=== PATIENT | male | born 1950 | race Asian ===

== ENCOUNTER 2024-02-09 18:43 | Observation (INO) ==
--- NOTE | 2024-02-09 19:18 | Emergency Department Note ---
Impression & Plan Chest pain ED Provider Note Provider: Anders Harris MD DATE OF SERVICE: 02/09/2024 CHIEF COMPLAINT: Chest pain, EKG changes HISTORY OF PRESENT ILLNESS: Patient is a 73-year-old gentleman reporting with family reports of some chest discomfort this morning. 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 Family states he had some chest discomfort over the last several years. Has worsened the last week or 2 and was seen in [facility]. Referral to cardiology placed. No shortness of breath reported but has had some dizziness. No trauma syncope or falls reported. Pain this morning while walking last about 40 minutes central chest (9 AM or so). Denies radiation elsewhere abdominal pain or nausea. Denies syncope. Denies difficulty breathing. Family and patient reports in the last year or 2 has had some brief episodes of dizziness with warmth and chest tightness that sometimes last 30 to 40 minutes some component of change when he has lied down in the past. This has not happened in several months according to daughter. EKG at doctor's office today was concerning for some T wave changes anteriorly and was sent here for further evaluation. Denies any pain currently. No heart history or history of stress test. Does not take aspirin but did a Sierra Leonean heart medicine he supposed to take if he feels like he is having a heart attack. PAST MEDICAL HISTORY: As noted above MEDICATIONS: Reviewed home medications includes amlodipine, atorvastatin, and losartan SOCIAL HISTORY: Non-smoker PHYSICAL EXAM: GENERAL: alert and oriented in no acute distress on stretcher, family at bedside Head: normocephalic and atraumatic EYES: No injection, discharge or icterus. EOMI. NECK: Trachea midline. ENT: Mucous membranes pink and moist. LUNGS: Airway patent. No retractions. Breath sounds clear with good air entry bilaterally. HEART: Regular rate and rhythm. No chest wall tenderness ABDOMEN: Soft and non-tender, without guarding or rebound. SKIN: Acyanotic, warm, dry, without rashes EXTREMITIES: Without swelling, tenderness or deformity NEUROLOGICAL: No focal deficits moving all extremities. No facial droop. Ambulatory. EK bpm normal sinus rhythm right bundle branch block. Some prominent T waves V4 V5 today without acute ST segment elevation or depression and QTc of 424. CONTINUOUS CARDIAC MONITORING: was ordered and showed a heart rate of 60s to 70s bpm in normal sinus rhythm 1 view chest x-ray per my interpretation: No pneumonia, pneumothorax, free air, or cardiomegaly appreciable. Patient's laboratory studies and imaging reviewed. Differential includes Cardiac ischemia, aortic dissection, pulmonary embolism, pneumothorax, pneumonia, pericarditis, myocarditis, esophageal rupture, GERD, cholecystitis, pancreatitis, musculoskeletal, as well as other pathologies. IMPRESSION/MEDICAL DECISION MAKING: Evidently some exertional chest discomfort this morning that has resolved. EKG from earlier this afternoon around 3:22 PM does show very prominent T wave changes and peaked T waves V2 through V6 without ST segment depression. EKG here this evening without these and patient pain-free. Question exertional component to his chest discomfort causing this change. Troponin sent. Not significant tachycardic or hypoxic and denies shortness of breath and lower suspicion for PE. Evidently did have some outpatient blood work recently but cannot see this in our system at this time. Blood was sent tonight to exclude any electrolyte abnormality or signs of acute renal dysfunction which is not noted. Blood counts were sent as well to exclude anemia. No significant anemia is noted. Not have any severe tearing pain or severe hypertension and doubt dissection. Chest x-ray obtained without findings of pneumonia or pneumothorax. While no active chest pain given a dose of aspirin given the history that is concerning. Troponin most importantly was sent to look for any ischemic findings. Troponin here returns at 5.3. Discussed with family and patient findings. Concern given exertional component of his discomfort as well as the EKG changes that have been occurring. Given this his age and risk factors discussed today for further cardiac evaluation possible need for stress test versus outpatient follow-up in several weeks (likely timeframe). Shared decision making agreeable for observation and cardiac evaluation into tomorrow. Hospitalist was contacted. DIAGNOSIS: Chest pain DISPOSITION: Hospitalist will evaluate Patient was agreeable with this plan. Past Med/Surg History Problem List (Updated 02/09/24 @ 21:07 by Anders Harris M.D.) Chest pain (Acute) Social History Smoking Status: Unknown if ever smoked Feels Safe at Home: Yes Allergies Allergies Allergy/AdvReac Type Severity Reaction Status Date / Time No Known Allergies Allergy Unverified 02/09/24 19:31 Home Meds Home Medications Medication Instructions Recorded Confirmed amlodipine 5 mg tablet 5 mg PO QAM 02/09/24 02/09/24 atorvastatin 10 mg tablet 10 mg PO QAM 02/09/24 02/09/24 losartan 50 mg tablet 50 mg PO QAM 02/09/24 02/09/24 Results & Data (ED) Vital Signs Vital Signs - 24 hr 02/09/24 18:46 02/09/24 18:59 02/09/24 19:03 Temperature 36.9 C Temperature Source Temporal Artery Scan Pulse Rate 70 68 Pulse Rate [Apical] Pulse Rhythm Regular Pulse Rhythm [Apical] Pulse Strength [Apical] Respiratory Rate 20 Respiratory Effort / Characteristics Non-Labored Spontaneous Respiratory Depth Normal Respiratory Pattern Blood Pressure 119/72 Blood Pressure [Left Arm] Blood Pressure Mean 87 Blood Pressure Mean [Left Arm] Blood Pressure Position [Left Arm] Pulse Oximetry 97 95 Oxygen Delivery Method Room Air Room Air Sepsis Recent Fever Within 48 Hours No Sepsis New/Unexplained Change in Mental Status No Sepsis Action Taken by Nursing No Action Required 02/09/24 19:03 02/09/24 19:06 02/09/24 21:00 Temperature Temperature Source Pulse Rate 97 H Pulse Rate [Apical] 74 65 Pulse Rhythm Regular Pulse Rhythm [Apical] Regular Regular Pulse Strength [Apical] Normal Normal Respiratory Rate 16 16 16 Respiratory Effort / Characteristics Non-Labored Spontaneous Non-Labored Spontaneous Respiratory Depth Normal Normal Respiratory Pattern Regular Regular Blood Pressure Blood Pressure [Left Arm] 110/56 L 128/72 Blood Pressure Mean Blood Pressure Mean [Left Arm] 74 90 Blood Pressure Position [Left Arm] Sitting Sitting Pulse Oximetry 95 95 95 Oxygen Delivery Method Room Air Room Air Room Air Sepsis Recent Fever Within 48 Hours Sepsis New/Unexplained Change in Mental Status Sepsis Action Taken by Nursing Laboratory Data 02/09/24 18:20 02/09/24 18:20 Lab Results 02/09/24 02/09/24 Range/Units 18:20 19:12 WBC 4.69 L (4.8-10.8) K/ul RBC 4.03 L (4.70-6.10) M/uL Hgb 13.8 L (14.0-18.0) g/dl POC Hgb 13.9 L (14.0-18.0) g/dl Hct 39.0 L (42.0-52.0) % POC Hct 41 L (42-52) % MCV 96.8 (80.0-100.0) fL MCH 34.2 H (25.0-34.0) pg MCHC 35.4 (32.0-36.0) g/dL RDW Std Deviation 44.7 (36.4-46.3) fL RDW Coeff of Jose 12.5 (11.5-14.5) % Plt Count 191 (130-400) K/uL MPV 9.9 (9.4-12.4) fL Immature Gran % (Auto) 0.4 % Neut % (Auto) 46.7 % Lymph % (Auto) 39.2 % [place] % (Auto) 9.4 % Eos % (Auto) 3.0 % Baso % (Auto) 1.3 % Neut # (Auto) 2.19 (1.40-6.50) K/uL Lymph # (Auto) 1.84 (1.20-3.40) K/uL [place] # (Auto) 0.44 (0.11-0.59) K/uL Eos # (Auto) 0.14 (0.00-0.50) K/uL Baso # (Auto) 0.06 (0.00-0.20) K/uL Immature Gran # (Auto) 0.02 (0.01-0.20) K/uL PT 10.6 (9.0-12.0) Seconds INR 1.0 (0.9-1.1) POC Sodium 135 (135-144) mmol/L Sodium 133 L (136-145) mmol/L POC Potassium 4.1 (3.3-5.0) mmol/L Potassium 4.1 (3.5-5.1) mmol/L POC Chloride 101 (101-112) mmol/L Chloride 103 (98-107) mmol/L Carbon Dioxide 24 (21-32) mmol/L POC Total CO2 21 L (24-31) mmol/L Anion Gap 6 (3-11) POC Anion Gap 18.0 (16-25) mmol/L POC BUN 14 (7-18) mg/dl BUN 15 (6-23) mg/dl Creatinine 1.06 (0.6-1.4) mg/dl POC Creatinine 1.1 (0.6-1.3) mg/dl Est Cr Clr Drug Dosing 52.8 ml/min eGFR 74.10 BUN/Creatinine Ratio 14.2 (10-20) Glucose 124 H (70-99(Fasting)) mg/dl POC Glucose (other) 120 H (70-99) mg/dl Calcium 9.0 (8.6-10.3) mg/dl POC Ioniz Calcium Dong 1.17 (1.12-1.32) mmol/l Magnesium 2.1 (1.7-2.4) mg/dl Total Bilirubin 0.5 (0.2-1.0) mg/dl AST 21 (13-39) U/L ALT 19 (7-52) U/L Alkaline Phosphatase 50 (34-104) U/L Troponin I High Sens 5.3 (0-20) pg/ml Total Protein 7.0 (6.0-8.3) gm/dl Albumin 4.3 (3.4-5.0) gm/dl Globulin 2.7 (2.5-4.0) gm/dl Albumin/Globulin Ratio 1.6 (0.9-2) Lipase 31 (11-82) U/L Administered Medications Discontinued Medications Aspirin (Aspirin 81 Mg Chew) 324 mg PO NOW STA Stop: 02/09/24 19:25 Last Admin: 02/09/24 19:29 Dose: 324 mg Documented By: SNS Imaging Data Radiologist's Impression: Chest X-Ray 02/09/24 18:58 SINGLE VIEW CHEST CLINICAL HISTORY: Atypical chest pain. FINDINGS: An AP, portable, upright chest radiograph is obtained. No prior studies are available for comparison at the time of dictation. The heart is mildly enlarged. The pulmonary vasculature is noncongested. Nonspecific interstitial thickening is likely chronic. The lungs and pleural spaces are clear. No pneumothorax is seen. The skeletal structures are osteopenic. The bony thorax is grossly intact. IMPRESSION: No acute cardiopulmonary abnormality is identified. ACT 112: Negative or not required by law. Electronically signed by: Kofi Soto M.D. 02/09/2024 10:04 PM Discharge Plan Visit Data Chief Complaint: Cardiac Assessment Stated Complaint: HEART PROBLEMS, HIGHER T WAVES THAN NORMAL ED Provider: Anders Harris Discharge Problem: Chest pain Patient Disposition: Being Evaluated by Hospitalist Forms Stand Alone Forms: My [facility] Prescriptions Prescriptions: No Action losartan 50 mg Tablet 50 mg PO QAM amlodipine 5 mg Tablet 5 mg PO QAM atorvastatin 10 mg Tablet 10 mg PO QAM Referrals Referrals: PCP,NO [Physician] -
[2024-02-09 19:24] LABS: iSTAT Creatinine 1.1 mg/dl (0.6-1.3); iSTAT Hemoglobin 13.9 g/dl (14.0-18.0); iSTAT Ionized Calcium 1.17 mmol/l (1.12-1.32); iSTAT Potassium 4.1 mmol/L (3.3-5.0)
[2024-02-09 19:29] LABS: Basophils # (auto) 0.06 K/uL (0.00-0.20); Basophils % (auto) 1.3 %; Eosinophils # (auto) 0.14 K/uL (0.00-0.50); Hemoglobin 13.8 g/dl (14.0-18.0); Immature Granulocytes # (auto) 0.02 K/uL (0.01-0.20); Immature Granulocytes % (auto) 0.4 %; Lymphocytes # (auto) 1.84 K/uL (1.20-3.40); Lymphocytes % (auto) 39.2 %; Mean Corpuscular Hemoglobin 34.2 pg (25.0-34.0); Mean Corpuscular Hgb Conc 35.4 g/dL (32.0-36.0); Mean Corpuscular Volume 96.8 fL (80.0-100.0); Mean Platelet Volume 9.9 fL (9.4-12.4); Monocytes # (auto) 0.44 K/uL (0.11-0.59); Monocytes % (auto) 9.4 %; Neutrophils # (auto) 2.19 K/uL (1.40-6.50); Neutrophils % (auto) 46.7 %; Platelet Count 191 K/uL (130-400); RDW Coefficient of Variation 12.5 % (11.5-14.5); RDW Standard Deviation 44.7 fL (36.4-46.3); Red Blood Count 4.03 M/uL (4.70-6.10); White Blood Count 4.69 K/ul (4.8-10.8)
[2024-02-09] MEDS: ASPIRIN 81 MG CHEW PO STA (19:29)
[2024-02-09 19:38] LABS: Albumin Globulin Ratio 1.6 (0.9-2); Albumin Level 4.3 gm/dl (3.4-5.0); BUN Creatinine Ratio 14.2 (10-20); Bilirubin,Total 0.5 mg/dl (0.2-1.0); Creatinine Clr Calc Pharmacy 52.8 ml/min; Globulin 2.7 gm/dl (2.5-4.0); Magnesium 2.1 mg/dl (1.7-2.4); Potassium 4.1 mmol/L (3.5-5.1)
[2024-02-09 19:45] LABS: Troponin I High Sensitivity 5.3 pg/ml (0-20)
[2024-02-09 19:50] LABS: Prothrombin Time 10.6 Seconds (9.0-12.0)
--- NOTE | 2024-02-09 22:05 | XRay Report ---
SINGLE VIEW CHEST CLINICAL HISTORY: Atypical chest pain. FINDINGS: An AP, portable, upright chest radiograph is obtained. No prior studies are available for c omparison at the time of dictation. The heart is mildly enlarged. The pulmonary vasculature is noncon gested. Nonspecific interstitial thickening is likely chronic. The lungs and pleural spaces are clear . No pneumothorax is seen. The skeletal structures are osteopenic. The bony thorax is grossly intact. IMPRESSION: No acute cardiopulmonary abnormality is identified. ACT 112: Negative or not required by law. Electronically signed by: Kofi Soto M.D. 02/09/2024 10:04 PM
--- NOTE | 2024-02-09 22:27 | History & Physical Report ---
Date of Service February 09, 2024 Assessment & Plan (1) Chest pain: (2) HTN (hypertension): (3) HLD (hyperlipidemia): Plan 73 year old male with h/o HTN, HLD presenting at recommendation of PCP d/t concern for T wave changes on outpatient EKG, also with intermittent exertional chest tightness: Patient to be admitted for observation and cardiology evaluation. #Chest pain/tightness: EKG on admission without ischemic changes Negative troponin Patient hemodynamically stable, currently without chest pain Cardiology consulted, appreciate recs TTE ordered, pending AM labs: BMP, fasting lipid panel #HTN: Continue home amlodipine and Losartan #HLD: Continue home Atorvastatin Dispo: Admit as [id number] FEN/GI: HH VTE ppx: Heparin Full Code History of Present Illness Primary Care Provider: María Montalvo, 73 year old male with h/o HTN, HLD presenting at recommendation of PCP d/t concern for T wave changes on outpatient EKG. 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 Patient also had a 40 minute episode of chest tightness while walking this morning - this intermittent chest tightness has been a chronic issue for multiple years, usually associated with exertion but sometimes occurs even at rest. Denies personal h/o RI, unsure about family cardiac history. Patient does, however, take a [place] Islander medication, Suxiao Jiuxin, as needed when he experiences this chest tightness - it is supposed to help relieve angina. Patient denies chest pain/tightness at present, denies shortness of breath, palpitations. Outpatient EKG with RBBB, T-wave changes in anterior leads but no overt ischemic changes. ED Course: EKG NSR rate [address] but without ST segment elevation or depression. Negative Troponin. Negative CXR. Allergies Allergy/AdvReac Type Severity Reaction Status Date / Time No Known Allergies Allergy Unverified 02/09/24 19:31 Home Medications Medication Instructions Recorded Confirmed Type amlodipine 5 mg tablet 5 mg PO QAM 02/09/24 02/09/24 History atorvastatin 10 mg tablet 10 mg PO QAM 02/09/24 02/09/24 History losartan 50 mg tablet 50 mg PO QAM 02/09/24 02/09/24 History Past Med/Surg History Problem List (Updated 02/09/24 @ 23:13 by Chris Villatoro DO) HLD (hyperlipidemia) HTN (hypertension) Chest pain (Acute) Social History Smoking Status: Never smoker Second Hand Exposure: No; Do You Dip or Chew Tobacco: No; Tobacco Cessation Education Requested by Patient: No Hx Alcohol Use: No Hx Substance Use: No Preferred Language: Mandarin [place]er Communication Ability: Effective Mixer Helper Required: Yes Beliefs That Will Affect Care: None Current Living Situation: Family Other Information That Helps Us Care for You: No Feels Safe at Home: Yes Safety Concerns: Feels Safe At This Time Assistive Devices: None Review of Systems Review of Systems: as per HPI Physical Exam Physical Exam: General: Alert and oriented. No acute distress Cardiac: Regular rate and rhythm, no murmurs appreciated Respiratory: Lungs clear to auscultation bilaterally, No increased work of breathing Extremities: No lower extremity edema, calves non-tender bilaterally Results & Data Results & Data Vital Signs (Past 12 Hours) Vital Signs Temp Pulse Pulse Resp BP BP Pulse Ox 02/09/24 21:00 65 16 128/72 95 02/09/24 19:06 74 16 110/56 L 95 02/09/24 19:03 97 H 16 95 02/09/24 19:03 95 02/09/24 18:59 68 02/09/24 18:46 36.9 C 70 20 119/72 97 O2 Del Method 02/09/24 21:00 Room Air 02/09/24 19:06 Room Air 02/09/24 19:03 Room Air 02/09/24 19:03 Room Air 02/09/24 18:59 02/09/24 18:46 Room Air Supervising Physician Co-Signing Physician Notes Attending addendum: I have supervised the medical residents activities, and agree with the H&P unless as otherwise noted. Assessment and Plan: Chest pain/hypertension- The patient will be admitted to telemetry for serial cardiac enzymes, serial EKG's, cardiac rhythm monitoring and a 2-D echocardiogram with Dopplers. Patient speaks primarily [place] Islander, but refused an official finish mill operator, in lieu of family member who is in the room Patient had been having worsening chest discomfort over the past week or so, and was seen at [facility] this morning, had an EKG which they were concerned about possible peaked T waves, and patient was advised to come to the ED for assessment. EKG in the ED shows normal sinus rhythm at 69, right bundle branch block, no acute ST-T changes Patient does take an medication, whose mode of action can not be determined at this time Troponin in the ED is 5.3, with follow-up pending Continue amlodipine and losartan Patient reportedly received aspirin already Consult cardiology Hyperlipidemia- Continue atorvastatin Hyperglycemia- Glucose 124 on admission No history of diabetes Resident Activity Tracking Resident Involvement: Resident Care Provided Care Provided: Adult Hospital Medicine
[2024-02-09] MEDS ORDERED: POLYETHYLENE (MIRALAX) 17 GM PACK PO PRN (23:29)
[2024-02-09] MEDS ORDERED: ALUMINUM/MAGNESIUM SUSP 30 ML UDC PO PRN (23:29)
[2024-02-09] MEDS ORDERED: ACETAMINOPHEN 325 MG TAB PO PRN (23:29)
[2024-02-10 03:16] VITALS: TEMP 98.2
[2024-02-10 05:30] LABS: Chol HDL Ratio 2.6 (0-5); Creatinine Clr Calc Pharmacy 54.1 ml/min
--- NOTE | 2024-02-10 06:11 | Billing Data ---
Date of Service February 10, 2024 Coding Level of Care Code 15146 INT INP/OBS CARE
[2024-02-10 07:30] VITALS: BP 113/56; PULSE 54; RESP 16; O2SAT 96
--- NOTE | 2024-02-10 08:26 | XCELERA ---
[id number]
--- NOTE | 2024-02-10 08:29 | Electrocardiogram Report ---
Test Reason : Blood Pressure : */* mmHG Vent. Rate : 54 BPM Atrial Rate : 54 BPM P-R Int : 180 ms QRS Dur : 128 ms QT Int : 432 ms P-R-T Axes : 44 33 24 degrees QTcB Int : 409 ms Sinus bradycardia Right bundle branch block Abnormal ECG When compared with ECG of 09-Feb-2024 18:54, (unconfirmed) No significant change was found Confirmed by Wild Jiménez ([id number]) on 02/10/2024 8:29:14 AM Referred By: REFERRED SELF Confirmed By: Wild Jiménez
--- NOTE | 2024-02-10 08:31 | Electrocardiogram Report ---
Test Reason : Blood Pressure : */* mmHG Vent. Rate : 69 BPM Atrial Rate : 69 BPM P-R Int : 180 ms QRS Dur : 128 ms QT Int : 396 ms P-R-T Axes : 64 43 26 degrees QTcB Int : 424 ms Normal sinus rhythm Right bundle branch block Abnormal ECG No previous ECGs available Confirmed by Wild Jiménez ([id number]) on 02/10/2024 8:30:33 AM Referred By: REFERRED SELF Confirmed By: Wild Jiménez
[2024-02-10] MEDS: HEPARIN SOD 5,000 UNIT/0.5 ML VIAL SQ SCH (08:34)
[2024-02-10] MEDS: ATORVASTATIN 10 MG TAB PO SCH (08:34)
[2024-02-10 09:00] LABS: Troponin I High Sensitivity 3.3 pg/ml (0-20)
[2024-02-10] MEDS: LOSARTAN POTASSIUM 50 MG TAB PO SCH (09:19)
[2024-02-10] MEDS: amLODIPine BESYLATE 5 MG TAB PO SCH (09:19)
--- NOTE | 2024-02-10 09:59 | Cardiology Consultation ---
Date of Consultation February 10, 2024 Assessment & Plan (1) Chest pain: (2) Right bundle branch block: Plan 1. Chest pain: Not related to cardiac ischemia. The patient related to an extended episode of symptoms without any elevation in cardiac biomarkers. I do not think the EKG obtained yesterday is indicative of an ACS. The patient was not having symptoms at that time. His symptoms are not exclusively exertional. In fact, it sounds as if the episodes are relatively infrequent and brief. Oftentimes his symptoms seem to be relieved with holding his breath. This would be more indicative of a reentrant SVT perhaps causing symptoms. Echocardiogram is normal. He does have an element of resting bradycardia and I think would be reasonable to perform exercise testing to monitor heart rate response. I discussed obtaining an outpatient monitor or perhaps more appropriate would be simply obtaining a pulse oximeter for as needed use as his episodes of chest pain or relatively infrequent. This would at least give us an idea of whether his symptoms are associated with a high heart rate and/or SVT. 2. Right bundle branch block: Unclear duration No other significant conduction disease. Not indicative of coronary artery disease. 3. Lipid profile appears quite favorable on low-dose atorvastatin. History of Present Illness Reason for Consultation: Chest pain Attending Physician: Miko Chowdary MD, PhD History of Present Illness The patient is a 73-year-old gentleman without a known history of coronary disease who was referred to the hospital by his primary care physician for symptoms of chest pain and an abnormal EKG. The patient does not speak Yoruba well. He was offered the use of a proprietary technical asst, but preferred to have his daughter do the translation. It seems that yesterday morning while he was on his usual walk he began to have symptoms of chest discomfort. This is described as precordial in nature without radiation. The patient has had similar symptoms in the past that were very mild and relatively short in duration. This particular episode seem to be more intense and lasted 40 minutes by report. The patient came home and contacted his primary care physician. He was seen in the outpatient setting and an EKG was obtained. The patient was advised to go to the emergency room for an evaluation but at that time refused. He was contacted later in the day and again advised to go to the emergency room and he complied. By time he reached the hospital his symptoms had resolved. According to the patient he has not had symptoms since yesterday morning. Apparently he has similar symptoms on occasion. These episodes are fairly random in nature and generally not associated with exertion. Usually last a few minutes and can be improved with holding his breath. The episodes happen rarely perhaps every couple of months. He believes they have been occurring for several years. He is not aware of palpitations during these episodes he did not endorse symptoms of dyspnea associated with activity or during these episodes. Occasionally he will have a sense of dizziness and lightheadedness that appears to be more related to vertigo and is positional. He lives in an assisted living community. On days where he is not able to perform his usual walk he will use some exercise equipment at the facility. Allergies Allergy/AdvReac Type Severity Reaction Status Date / Time No Known Allergies Allergy Unverified 02/09/24 19:31 Home Medications Medication Instructions Recorded Confirmed Type amlodipine 5 mg tablet 5 mg PO QAM 02/09/24 02/09/24 History atorvastatin 10 mg tablet 10 mg PO QAM 02/09/24 02/09/24 History losartan 50 mg tablet 50 mg PO QAM 02/09/24 02/09/24 History Patient History Social History Smoking Status: Never smoker Second Hand Exposure: No; Do You Dip or Chew Tobacco: No; Hx Alcohol Use: No Hx Substance Use: No Preferred Language: [employer] Khmer Communication Ability: Effective [employer] Required: Yes Beliefs That Will Affect Care: None Current Living Situation: Family Feels Safe at Home: Yes Assistive Devices: None Review of Systems Review of Systems: Per HPI eating well. No gastrointestinal symptoms recently. Physical Exam Physical Exam: The patient is alert and oriented. Mood and affect appeared normal. He answered all questions appropriately. HEENT: Pupils are equal and reactive to light and accommodation. Extraocular movements are intact. The sclerae are anicteric. Neuro: Cranial nerves intact Lungs: Clear to auscultation bilaterally. He has good air movement without use of accessory muscles. No rales wheezes or rhonchi. Cardiac: Heart demonstrates a regular rate and rhythm. Normal S1 and S2. No murmurs on examination. Pulses: The patient has palpable radial pulses bilaterally that are equal in intensity Extremities: There was no evidence of hypoperfusion. There is no cyanosis or clubbing. There is no edema. Skin: I did not appreciate any rashes on examination today. Results & Data Vital Signs (Past 12 Hours) Vital Signs Temp Pulse Pulse Resp BP BP Pulse Ox 02/10/24 07:29 36.8 C 54 L 16 113/56 L 96 02/10/24 07:23 52 L 02/10/24 03:14 36.8 C 55 L 20 106/62 96 02/09/24 23:58 36.9 C 53 L 18 95 02/09/24 23:57 36.8 C 52 L 19 118/74 95 02/09/24 23:29 02/09/24 23:29 60 20 121/71 96 02/09/24 23:16 57 L 02/09/24 22:30 95 H 19 129/72 97 02/09/24 22:00 60 16 114/71 96 Pulse Ox O2 Del Method O2 Del Method 02/10/24 07:29 Room Air 02/10/24 07:23 02/10/24 03:14 Room Air 02/09/24 23:58 Room Air 02/09/24 23:57 Room Air 02/09/24 23:29 99 Room Air 02/09/24 23:29 Room Air 02/09/24 23:16 02/09/24 22:30 02/09/24 22:00 Laboratory Results Abnormal Lab Results 02/09/24 02/09/24 02/10/24 18:20 19:12 05:02 WBC 4.69 L RBC 4.03 L Hgb 13.8 L POC Hgb 13.9 L Hct 39.0 L POC Hct 41 L MCV 96.8 MCH 34.2 H MCHC 35.4 RDW Std Deviation 44.7 RDW Coeff of Jose 12.5 Plt Count 191 MPV 9.9 Immature Gran % (Auto) 0.4 Neut % (Auto) 46.7 Lymph % (Auto) 39.2 Wallace % (Auto) 9.4 Eos % (Auto) 3.0 Baso % (Auto) 1.3 Neut # (Auto) 2.19 Lymph # (Auto) 1.84 Wallace # (Auto) 0.44 Eos # (Auto) 0.14 Baso # (Auto) 0.06 Immature Gran # (Auto) 0.02 PT 10.6 INR 1.0 POC Sodium 135 Sodium 133 L 136 POC Potassium 4.1 Potassium 4.1 4.0 POC Chloride 101 Chloride 103 106 Carbon Dioxide 24 25 POC Total CO2 21 L Anion Gap 6 5 POC Anion Gap 18.0 POC BUN 14 BUN 15 13 Creatinine 1.06 1.03 POC Creatinine 1.1 Est Cr Clr Drug Dosing 52.8 54.1 eGFR 74.10 76.70 BUN/Creatinine Ratio 14.2 Glucose 124 H POC Glucose (other) 120 H Fasting Glucose 85 Calcium 9.0 9.0 POC Ioniz Calcium Dong 1.17 Magnesium 2.1 Total Bilirubin 0.5 AST 21 ALT 19 Alkaline Phosphatase 50 Troponin I High Sens 5.3 3.3 Total Protein 7.0 Albumin 4.3 Globulin 2.7 Albumin/Globulin Ratio 1.6 Triglycerides 54 Cholesterol 141 LDL Cholesterol, Calc 76 VLDL Cholesterol, Calc 11 HDL Cholesterol 54 Cholesterol/HDL Ratio 2.6 Lipase 31 Diagnostic Findings Echocardiogram 02/10/2024: Normal LV systolic function. No significant valvular heart disease. Essentially normal study. PG Care Time/CCT Total # of Minutes Spent Total Time Spent with Patient: Total time spent is greater than 50% in coordination of care (as documented) at patient's floor/unit and/or counseling patient: Coding Level of Care Code 60757 INT INP/OBS CARE 375MIN Diagnoses Chest pain R07.9 Right bundle branch block I45.10
--- NOTE | 2024-02-10 13:10 | XCELERA ---
[id number]
--- NOTE | 2024-02-10 13:39 | Discharge Summary ---
Discharge Summary Date of Service February 10, 2024 Principal Dx & Hospital Course #1 = Principal Diagnosis (1) Chest pain: Etiology of chest pain remains unclear in this patient with a past medical history of intermittent bouts of exertional chest tightness despite taking a [place]ian herbal medicine called suxiao jiuxin wan at his home to mitigate his intermittent bouts of exertional chest tightness. In my brief review of the literature, I note that the composition of suxiao jiuxin wan includes Ligusticum chuanxiong and Borneolum syntheticum. The mechanism of action for Ligusticum chuanxiong is to dilate coronary arteries, thereby lowering blood pressure. Its alkaloid derivatives function as anti- spasmodics. The mechanism of action of Borneolum syntheticum remains less clear, but is known to enhance/increase the activity of Ligusticum chuanxiong; on the other hand, adverse effects of Borneolum syntheticum include irritation of the eyes, skin, and respiratory tract. cf., Derrick Colón. "Observation of therapeutic effects of Suxiao Jiuxin Wan for CHD." The Practical Journal of Intergrating [place]ian with Modern Medicine 1996;9(9):476. As the majority of studies of this [place]amanian herbal medicine called suxiao jiuxin are observational in design and not randomized or controlled in any way, as the chemical composition/identification of suxiao jiuxin wan has not been determined by gas chromatography-mass spectrometry, and as the harvesting/manufacturing process(es) involved in procuring this [place]ian herbal medicine called suxiao jiuxin wan are not subject to standard quality controls in place in the [place] there is no way to determine what exactly this patient is consuming . In any event, this patient ruled out for acute NSTEMI with troponin #1 5.3 pg/mL (02/09/2024, 6:20pm) and troponin #2 3.3 pg/mL (02/10/2024, 5:02am). cf., EKG #1 (02/09/2024, 6:54pm): NSR @ 69, GA 180, QTC 424, RBBB, TWI in III, no acute ST elevations/depressions (by my review). cf., EKG #2 (02/10/2024, 12:01am): sinus armando @ 54, GA 180, QTC 409, RBBB, TWI in III, no acute ST elevations/depressions (by my review). cf., Stress ECHO (02/10/2024, 9:51am): report dictated as normal by CARDS Dr. Wild Jiménez. cf., TTE (02/10/2024, 11:29pm): report dictated as normal by CAR[facility] Dr. Wild Jiménez. cf., fasting lipid panel (02/10/2024, 5:02am): total cholesterol 141, LDL 76, HDL 54, triglyceride 54 mg/dL. Patient was subsequently discharged back to his home today, 02/10/2024, with no need for pharmacologic intervention or further workup. Given the uncertainty surrounding the molecular characterization, harvesting, and manufacturing processes involved in procuring this [place]amanian herbal medicine called inez fieldsin wan, I have advised this patient to stop taking suxiao jiuxin wan immediately and permanently. (2) HTN (hypertension): Well-controlled with admission BP 119/72 (02/09/2024, 6:46pm) and discharge BP 113/56 (02/10/2024, 7:29am) on patient's home-scheduled 2 gram Na diet, amlodipine 5mg PO qam, and losartan 50mg PO qam while in [facility]. Patient will continue this same regimen on hospital discharge home on 02/10/2024. (3) HLD (hyperlipidemia): Asymptomatic on patient's home-scheduled atorvastatin 10mg PO qam with fasting lipid panel (02/10/2024, 5:02am): total cholesterol 141, LDL 76, HDL 54, triglyceride 54 mg/dL. Patient will continue this same home-scheduled medication on hospital discharge home on 02/10/2024. Plan 73 years old [place]ian male with PMH of FULL CODE @ home, hyperlipidemia, and HTN, who presented to [facility] ER on 02/09/2024 at the recommendation of his PCP Dr. María Montalvo, who noted that this patient had TWI in an outpatient EKG, along with intermittent, exertional chest tightness. Other miscellaneous issues: 1. Vascular. DVT prophylaxis. Patient received pharmacologic DVT prophylaxis with heprin 5000 units SQ q12 while in [facility]. Patient will not continue this medication on hospital discharge home on 02/10/2024. Of note, patient had no complaints of calf pain, leg swelling, or pleurisy to suggest either DVT or PE while in [facility]. 2. Pain Management. Patient reported/reports 0/10 pain anywhere in/on the body while in [facility] from 02/09/2024 to 02/10/2024. Observe. Discharge Exam General: comfortable, coherent, cooperative. Wide awake and alert. Not confused, lethargic, or obtunded. Patient speaks in complete, fluent, and artic ulate sentences without pause, interruption, cough, or wheeze. HEENT: NC/AT. EOMI. PERRL. No nystagmus, gaze paresis, anisocoria, miosis, chemosis, mydriasis, hyphema, scleral injection, conjunctivitis, or pterygium. No otorrhea or rhinorrhea. No pharyngeal discharge or erythema. Neck: Supple, no stridor, bruit, goiter, JVD, or HJR. Chest: Symmetric rise and fall with respirations. Lungs: CTA/P. No audible expiratory wheeze, egophony, pectoriloquy, increase in tactile fremitus, or flatness/dullness to percussion at the bases. Heart: RRR, S1 and S2 noted. No S3 or S4 summation gallop. Grade II/ early systolic murmur @ LLSB, without radiation to the carotids, axilla, or back, and which remains invariant in regards to the respiratory cycle. Abdomen: Soft, NT, ND, no organomegaly. Bowel sounds auscultated in all 4 quadrants. Extremities: No clubbing, cyanosis, or edema. 2+ pedal pulses bilaterally. Skin: No decubitus ulcer, exanthem, or enanthem. Neurology: Alert and oriented in regards to person, place, time, or situation. 5/5 motor strength in all 4 extremities, both proximally and distally. Urology: No robles catheter. No urethral discharge. Discharge Plan Discharge Items Patient Disposition: Home - Self-Care Reason For Visit: CHEST TIGHTNESS, ABNORMAL OUTPATIENT EKG Discharge Diagnosis: chest pain Condition on Discharge: Fair Activity: Resume your previous activity Non-emergency contact: Primary Care Provider Call non-emergency contact if: you have any medication questions Follow-up/Referrals: María Montalvo, DO [Primary Care Provider] - Diet: Heart Healthy Addtl Attending Provider Instructions: See your PCP Dr. María Montalvo within 3-5 days of hospital discharge. Pending Studies at Discharge: No Stand-Alone Forms: My [facility] [employer], Smoking Cessation Medications and DC Order Prescriptions: Continued losartan 50 mg Tablet 50 mg PO QAM amlodipine 5 mg Tablet 5 mg PO QAM atorvastatin 10 mg Tablet 10 mg PO QAM Discharge Orders: Discharge Order (Routine); Ordered 02/10/24 Ordered By: Miko Chowdary Admission Data Admit Date/Time: 02/09/24 22:47 Attending Provider: Miko Chowdary Admit Provider: Chris Villatoro Primary Care Provider: María Montalvo Other Providers: Amador Davis; Wild Jiménez Other Interventions: Discharge Summary Assessment (RN) Last Done: 02/10/24 13:31 Hospital Stay Data Consultations 02/09/24 21:23 ED Decision to Admit Stat 02/09/24 23:29 Consult Cardiology Routine Pending Results Patient Have Any Pending Studies at Discharge: No Discharge Instructions Given to Patient (Per Discharging Provider) See your PCP Dr. María Montalvo within 3-5 days of hospital discharge. Total Time Total Time Spent Total Time Spent (In Minutes): 35 minutes. Coding Level of Care Code 35134 INP/OBS DISCH >30 MIN Diagnoses Chest pain R07.9 HTN (hypertension) I10 HLD (hyperlipidemia) E78.5
--- NOTE | 2024-02-10 18:02 | Electrocardiogram Report ---
Test Reason : Blood Pressure : */* mmHG Vent. Rate : 61 BPM Atrial Rate : 61 BPM P-R Int : 168 ms QRS Dur : 120 ms QT Int : 428 ms P-R-T Axes : 37 65 38 degrees QTcB Int : 430 ms Poor data quality, interpretation may be adversely affected Normal sinus rhythm Right bundle branch block Abnormal ECG When compared with ECG of 10-Feb-2024 00:01, No significant change was found Confirmed by Wild iJménez ([id number]) on 02/10/2024 6:02:01 PM Referred By: REFERRED SELF Confirmed By: Wild Jiménez
== END 2024-02-10 13:50 | disposition home or self-care (01) ==
LOC: 4W 18:43 → ED 18:43 → SUATTDRO 22:47 → 4W 23:29